=== PATIENT | female | born 1990 | race Caucasian/White ===

== ENCOUNTER 2023-06-19 22:43 | Observation (INO) | payer BC, SELFPAY ==
--- NOTE | ~2023-06-19 | US_ITS ---
EXAMINATION: US abdomen limited DATE: 06/20/2023 13:31 INDICATION: Right upper quadrant pain TECHNIQUE: Multiple grayscale and Doppler ultrasound images of the abdomen were obtained. COMPARISON: CT of the same date FINDINGS: The head and body of the pancreas are normal. The pancreatic tail is obscured by bowel gas. The liver is normal with normal echogenicity and echotexture. No surface nodularity. Normal hepatope elmer flow in the main portal vein. There are multiple stones in the gallbladder. The gallbladder wall is thickened. Pericholecystic fluid is noted. The normal common bile duct measures 6 mm. There was no sonographic Garza sign although sensitivity is limited by pain medication. IMPRESSION: 1. Cholelithiasis with acute cholecystitis. 2. Of note, the patient's IUD appears to be malpositioned on the comparison CT. Reviewed, dictated and finalized at [facility]. 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
--- NOTE | ~2023-06-19 | CT_ITS ---
CT of the Abdomen and Pelvis: Indication: Abdominal pain Technique: 2.5 mm axial scans were obtained through the abdomen and pelvis following intravenous adm inistration of 100 cc of Omnipaque 350. Dose reduction technique was used on this scan by utilizing a utomated exposure control and iterative reconstruction technique. The dose-length product (DLP) was 5 49.09 mGy-cm. Findings: Scans through the lung bases are unremarkable. The liver, spleen, pancreas, adrenals and kidneys are within normal limits. Gallbladder is distended with diffuse wall thickening. No evidence of aortic aneurysm. No lymphadenopathy. No bowel obstruction or bowel wall thickening. There is no evidence to suggest acute appendicitis. Images through the pelvis were performed. Urinary bladder unremarkable. IUD in place. No other adnexa l mass seen. Trace pelvic ascites. Impression: Distended gallbladder with gallbladder wall thickening is suggestive of acute cholecystitis. Correlat e clinically. Trace pelvic ascites. Reviewed, dictated and finalized at [facility]. TER GEOPHYSICAL Impression: Distended gallbladder with gallbladder wall thickening is suggestive of acute c holecystitis. Correlate clinically. Trace pelvic ascites.
[2023-06-19 22:46] VITALS: BP 117/87; PULSE 98; RESP 16; TEMP 36.6; O2SAT 100
[2023-06-19 22:57] LABS: Basophils Percent Auto 0.4 % (0.2-1.2); Hematocrit 41.4 % (37.0-47.0); Hemoglobin 13.4 g/dL (12.0-15.0); Immature Granulocyte Absolute 0.03 K/mm3 (0.00-0.031); Immature Granulocyte Percent A 0.3 % (0-0.5); Lymphocytes Percent Auto 10.2 % (18.3-44.2); Mean Corpuscular HGB Conc 32.4 g/dl (32-36); Mean Corpuscular Hemoglobin 29.9 pg (26-34); Mean Corpuscular Volume 92.4 fl (80-100); Mean Platelet Volume 10.4 fl (7.4-10.4); Monocytes Absolute Auto 0.5 K/mm3 (0.1-0.6); Monocytes Percent Auto 4.4 % (2.6-8.5); Neutrophils Absolute Auto 9.2 K/mm3 (1.3-6.7); Neutrophils Percent Auto 84.7 % (45.5-73.1); Platelet Count Result 275 k/mm3 (150-375); Red Blood Count 4.48 M/mm3 (4.2-5.4); White Blood Count 10.8 K/mm3 (4.5-10.0)
[2023-06-19 23:10] LABS: Alanine Aminotransferase 24 U/L (6-35); Albumin Level 4.5 g/dL (3.5-5.1); Alkaline Phosphatase 58 U/L (38-126); Anion Gap 8 mmol/L (8-16); Aspartate Amino Transferase 24 U/L (14-36); Bilirubin,Total 0.7 mg/dL (0.2-1.3); Blood Urea Nitrogen 10 mg/dL (7-17); Carbon Dioxide 23 mmol/L (22-30); Chloride 105 mmol/L (98-107); Estimated CRCL calculation 145 ml/min; Estimated Glomerular Filt Rate > 60; Glucose 123 mg/dL (65-110); Lipase 58 U/L (23-300); Potassium 3.6 mmol/L (3.4-5.0); Sodium 136 mmol/L (137-145)
[2023-06-20] VITALS (15 sets, daily range): BP systolic 95–129; BP diastolic 58–82; PULSE 63–86; RESP 12–19; TEMP 36.7–37.4; O2SAT 98–100; BMI 32.3
[2023-06-20 01:54] LABS: Appearance Urine Clear (Clear); Bacteria Urine Rare /hpf; Bilirubin Urine Negative (Negative); Blood Urine Negative (Negative); Color Urine Dark Yellow (Yellow); Glucose Urine UA Negative (Negative); Ketones Urine 3+ mg/dL (Negative); Leukocyte Esterase Ur Negative LEU/UL (Negative); Nitrate Urine Negative (Negative); Non Pathogenic Casts 0-2; Protein Urine 1+ mg/dL (Negative); RBC Urine 0-2 /hpf (0-2); Specific Grav Ur 1.034 (1.001-1.035); Squamous Epithelial Cell Urine Occasional /hpf (Few); Urobilinogen Urine 0.2 mg/dL (<2.0); WBC Urine 0-5 /hpf; pH Urine 5.5 (5.0-9.0)
[2023-06-20 02:01] LABS: Add Urine Microscopic? YES
--- NOTE | 2023-06-20 03:48 | ED.ABDPAIN ---
HPI - Abdominal Pain General Chief Complaint: Abdominal Pain Stated Complaint: sharp abd pain into back/ N/V Time Seen by Provider: 06/20/23 03:24 History of Present Illness HPI narrative: 32 old female present to the emergency department for evaluation of right upper quadrant pain that started at 8:00 a.m.. Patient denies any prior history of gallbladder disease patient does have 2 kids and 2 C sections. Patient reports that the night before she had done shows for dinner but did not have pain until she woke up at 8-9 a.m.. Patient states she had nausea and vomiting with associated right upper quadrant pain for the majority of the day. Related Data Allergies Allergy/AdvReac Type Severity Reaction Status Date / Time No Known Allergies Allergy Verified 06/20/23 02:54 Review of Systems Review of Systems: All systems reviewed & are unremarkable except as noted in HPI and below Exam Narrative: APPEARANCE: Well appearing, no pain, no distress, well-nourished. HEAD: normocephalic, atraumatic. EYES: PERRLA/EOMI, conjunctivae clear. NOSE: Normal no drainage EARS:TMS clear with good light reflex. THROAT: Pharynx clear, no exudate. NECK: Supple. No adenopathy, no masses. RESPIRATORY: Airway patent, respirations nonlabored. Clear to auscultation bilaterally, no rales, rhonchi, wheezing. CARDIOVASCULAR: Regular rate and rhythm without murmurs rubs or gallops. ABDOMINAL: Right upper quadrant tenderness to palpation MUSCULOSKELETAL: Moves all extremities. Strength/ROM intact, No edema, No calf tenderness. NEURO: Alert. Cranial nerves II through XII intact. Good gait. Good coordination SKIN: Warm, dry. Normal Color PSYCHIATRIC: Normal affect/mood. Course Course Emergency Course: 32-year-old female present to the emergency department for evaluation of right upper quadrant pain. patient is afebrile but does have a leukocytosis of 10.8, hemoglobin is 13.4, CMP had no elevation of T bili AST ALT or alk-phos, patient's lipase was normal. UA showed no evidence of infection. CT scan was concerning for acute cholecystitis. I discussed the case with surgery and patient was accepted. Patient and family were updated on the results of the imaging and treatment plan. Vital Signs Vital signs: Vital Signs Temperature 97.8 F 06/19/23 22:46 Pulse Rate 98 02/19/24 22:46 Respiratory Rate 16 06/19/23 22:46 Blood Pressure 117/87 06/19/23 22:46 Pulse Oximetry 100 06/19/23 22:46 Oxygen Delivery Room Air 06/19/23 22:46 Temperature 97.8 F 06/19/23 22:46 Pulse Rate 76 06/20/23 07:21 Respiratory Rate 14 06/20/23 07:21 Blood Pressure 105/68 06/20/23 07:21 Pulse Oximetry 98 06/20/23 07:21 Oxygen Delivery Room Air 06/19/23 22:46 MDM - Abdominal Pain Lab Data 06/19/23 22:51 06/19/23 22:51 Labs: Lab Results 06/19/23 06/20/23 Range/Units 22:51 00:36 WBC 10.8 H (4.5-10.0) K/mm3 RBC 4.48 (4.2-5.4) M/mm3 Hgb 13.4 (12.0-15.0) g/dL Hct 41.4 (37.0-47.0) % MCV 92.4 (80-100) fl MCH 29.9 (26-34) pg MCHC 32.4 (32-36) g/dl RDW 13.0 (11.5-14.5) % Plt Count 275 (150-375) k/mm3 MPV 10.4 (7.4-10.4) fl Immature Gran % (Auto) 0.3 (0-0.5) % Neut % (Auto) 84.7 H (45.5-73.1) % Lymph % (Auto) 10.2 L (18.3-44.2) % Mcleod % (Auto) 4.4 (2.6-8.5) % Eos % (Auto) 0.0 (0-4.4) % Baso % (Auto) 0.4 (0.2-1.2) % Lymph # (Auto) 1.10 (0.9-3.2) K/mm3 Mcleod # (Auto) 0.5 (0.1-0.6) K/mm3 Eos # (Auto) 0.0 (0-0.3) K/mm3 Baso # (Auto) 0.0 (0.0-0.1) K/mm3 Abs Immat Gran (auto) 0.03 (0.00-0.031) K/mm3 Absolute Neuts (auto) 9.2 H (1.3-6.7) K/mm3 Absolute Nucleated RBC 0.0 (0.0-0.012) K/mm3 Nucleated RBC % 0.0 (0.0-0.2) % Sodium 136 L (137-145) mmol/L Potassium 3.6 (3.4-5.0) mmol/L Chloride 105 (98-107) mmol/L Carbon Dioxide 23 (22-30) mmol/L Anion Gap 8 (8-16) mmol/L BUN 10 (7-17) mg/d
[2023-06-20 04:17] LABS: Pregnancy On Board Control Positive; Urine Pregnancy Test Negative
[2023-06-20] MEDS: HYDROmorphone HCL INJ (*CRX) 1 MG/ML SYR IV PUSH (04:30)
[2023-06-20] MEDS: SODIUM CHLORIDE 0.9% IV 1,000 ML 999 ML IV CONT (04:30)
[2023-06-20] MEDS: ONDANSETRON INJ 4 MG/2 ML VIAL IV PUSH ×3 (04:30→17:06)
[2023-06-20] MEDS: HYDROmorphone HCL INJ (*CRX) 1 MG/ML SYR 0.5 MG IV PUSH ×4 (06:55→21:16)
[2023-06-20] MEDS: metroNIDAZOLE 500 MG/ISO 100ML 500 MG/100 ML BAG 100 MG IVPB ×3 (07:20→21:12)
--- NOTE | 2023-06-20 07:48 | ADMGEN ---
This patient, Gi Hoyos, was admitted to [facility] Surg Room 321-02 at 0735. Patient/family oriented to hospital policies and general routines including ID bracelet, bed and alarms, visiting hours, pain management, procedures, bathroom and other care routines, personal items, smoking policy, room service/diet, and visiting hours. Information on how to activate the Rapid Response Team has been discussed. Patient/Family are encouraged to report perceived risks to care and to ask questions if they do not understand what they are told or what they should do.
[2023-06-20] MEDS: SODIUM CHLORIDE 0.9% IV 1,000 ML 125 ML IV CONT ×2 (07:59→18:07)
[2023-06-20] MEDS: ACETAMINOPHEN 500 MG TABLET 1000 MG PO ×2 (11:06→18:07)
--- NOTE | 2023-06-20 12:52 | PM.IMHP ---
H&P: HPI History of Present Illness Date/Time: 06/20/23 12:52 Chief Complaint: Right upper quadrant pain Narrative: This is a 32-year-old woman who presented to the emergency department overnight with worsening right upper quadrant pain. She woke up yesterday morning and began experiencing the pain. The pain worsened throughout the day and she began experiencing nausea and vomiting. She had eaten not shows the night before, but went to bed feeling fine. She has never had symptoms like this before but may have had some dull minor pains in the past. She denies any fevers or chills. She denies any family history of gallbladder issues. In the emergency department she was noted to have a slightly elevated white blood count the liver enzymes were all normal. CT showed evidence of acute cholecystitis. She was then admitted for further treatment. Review of Systems Review of Systems: All systems reviewed & are unremarkable except as noted in HPI and below Eyes: Eyes: Denies change in vision ENT: Denies hearing loss, Denies neck pain and Denies sore throat Cardiovascular: Cardiovascular: Denies chest pain and Denies dyspnea Respiratory: Respiratory: Denies cough, Denies dyspnea and Denies wheezing Gastrointestinal: Gastrointestinal: Reports as per HPI Genitourinary: Genitourinary: Denies hematuria and Denies dysuria Musculoskeletal: Musculoskeletal: Denies arthralgias, Denies joint swelling and Denies neck pain Allergic/Immunologic: Allergic/Immunologic: Denies wheezing [facility] Past Medical History Medical History (Updated 06/20/23 @ 12:54 by Chino Mcdonald DO) No pertinent past medical history Surgical History Surgical History (Updated 06/20/23 @ 12:54 by Chino Mcdonald DO) History of Family History Family History (Updated 06/20/23 @ 12:54 by Chino Mcdonald DO) Father Diabetes mellitus Mother No problems noted. Social History Social History Smoking status: Never smoker Alcohol intake: never Substance use: never Do You Feel Safe in your Home?: Yes Lack of Transportation: No Lack of Food: Never True Current Housing: I Have Housing Concerned About Future Housing: No Difficulty Paying Gas/Electric Bills: No Difficulty Paying for Meds: No Currently Unemployed: No Education: Bachelor's Degree Difficulty w/ Childcare or Family Care: No Spiritual care concerns: No Meds Home Medications and Allergies Home Medications Medication Instructions Recorded Confirmed Type multivitamin with minerals-folic 1 tablet PO DAILY 06/20/23 06/20/23 History acid 0.4 mg tablet Allergies Allergy/AdvReac Type Severity Reaction Status Date / Time No Known Allergies Allergy Verified 06/20/23 02:54 Vital Signs Vital Signs - 24 hr 06/19/23 22:46 06/20/23 02:30 06/20/23 03:30 Temperature 36.6 C Pulse Rate 98 76 81 Respiratory Rate 16 15 18 Blood Pressure 117/87 129/76 118/72 Pulse Oximetry 100 100 100 Oxygen Delivery Room Air 06/20/23 04:30 06/20/23 05:06 06/20/23 05:16 Temperature Pulse Rate 85 84 72 Respiratory Rate 13 14 16 Blood Pressure 123/81 114/82 117/70 Pulse Oximetry 98 99 99 Oxygen Delivery 06/20/23 05:31 06/20/23 05:46 06/20/23 06:01 Temperature Pulse Rate 71 63 78 Respiratory Rate 15 16 17 Blood Pressure 108/69 109/68 111/78 Pulse Oximetry 100 99 99 Oxygen Delivery 06/20/23 06:16 06/20/23 06:31 06/20/23 06:46 Temperature Pulse Rate 84 86 82 Respiratory Rate 17 19 19 Blood Pressure 114/74 113/71 118/72 Pulse Oximetry 100 100 99 Oxygen Delivery 06/20/23 07:21 06/20/23 07:35 06/20/23 08:00 Temperature 36.7 C Pulse Rate 76 77 Respiratory Rate 14 18 Blood Pressure 105/68 109/65 Pulse Oximetry 98 98 Oxygen Delivery Room Air Exam Const: General: alert; No acute distress Orientation/consciousness: patient oriented x3 Limitations: no limitations HENMT: Head:
[2023-06-21] VITALS (10 sets, daily range): BP systolic 97–121; BP diastolic 56–69; PULSE 74–103; RESP 12–18; TEMP 36.2–36.7; O2SAT 93–100
[2023-06-21] MEDS: SODIUM CHLORIDE 0.9% IV 1,000 ML 125 ML IV CONT ×2 (02:04→08:06)
[2023-06-21] MEDS: ACETAMINOPHEN 500 MG TABLET 1000 MG PO (02:07)
[2023-06-21] MEDS: HYDROmorphone HCL INJ (*CRX) 1 MG/ML SYR 0.5 MG IV PUSH ×7 (02:08→15:12)
[2023-06-21] MEDS: metroNIDAZOLE 500 MG/ISO 100ML 500 MG/100 ML BAG 100 MG IVPB ×2 (05:17→13:57)
[2023-06-21 06:00] LABS: Hematocrit 34.2 % (37.0-47.0); Hemoglobin 10.8 g/dL (12.0-15.0); Mean Corpuscular HGB Conc 31.6 g/dl (32-36); Mean Corpuscular Hemoglobin 30.1 pg (26-34); Mean Corpuscular Volume 95.3 fl (80-100); Mean Platelet Volume 10.6 fl (7.4-10.4); Platelet Count Result 183 k/mm3 (150-375); Red Blood Count 3.59 M/mm3 (4.2-5.4); Red Cell Distribution Width 13.2 % (11.5-14.5); White Blood Count 5.5 K/mm3 (4.5-10.0)
[2023-06-21 06:11] LABS: Alanine Aminotransferase 46 U/L (6-35); Albumin Level 3.1 g/dL (3.5-5.1); Alkaline Phosphatase 48 U/L (38-126); Anion Gap 2 mmol/L (8-16); Aspartate Amino Transferase 48 U/L (14-36); Bilirubin,Total 0.8 mg/dL (0.2-1.3); Blood Urea Nitrogen 5 mg/dL (7-17); Calcium 7.6 mg/dL (8.4-10.2); Carbon Dioxide 26 mmol/L (22-30); Chloride 107 mmol/L (98-107); Estimated CRCL calculation 145 ml/min; Estimated Glomerular Filt Rate > 60; Glucose 85 mg/dL (65-110); Lipase 41 U/L (23-300); Potassium 3.1 mmol/L (3.4-5.0); Sodium 135 mmol/L (137-145)
[2023-06-21] MEDS: ONDANSETRON INJ 4 MG/2 ML VIAL IV PUSH (08:09)
--- NOTE | 2023-06-21 10:47 | PM.PNGS ---
Progress Note: A&P Assessment and Plan (1) Acute cholecystitis: Code(s): K81.0 - Acute cholecystitis Status: Acute Assessment and Plan: Patient is still agreeable to proceed with surgery this afternoon. She has significant situational anxiety. We had a thorough discussion again about surgery and I answered all of her questions. I have also added IV Ativan as needed for her anxiety. Potassium also replaced. Plan to proceed with laparoscopic cholecystectomy this afternoon. Subjective Subjective Date/Time Seen: 06/21/23 10:47 Patient reports: still having pain Interval history: Scheduled for a laparoscopic cholecystectomy this afternoon with Dr. Mcdonald. I was called to the room by the nurse as patient is feeling very anxious and has been tearful all morning. The patient is just nervous about surgery. She is still having pain in receiving IV Dilaudid. She feels that her nerves are extremely height and as she has been waiting for surgery since coming into the ER 2 nights ago. She is still agreeable to surgery. No new concerns or acute changes overnight. Exam GI: Inspection: non-distended GI Palp: Yes Tenderness to palpation present (GI) (Right upper quadrant) Objective Data Vital Signs Vital Signs: Vital Signs - 24 hr 06/20/23 14:00 06/20/23 21:24 06/21/23 05:22 Temperature 98.0 F 99.4 F 97.9 F Pulse Rate 77 66 74 Respiratory Rate 14 12 12 Blood Pressure 95/59 L 100/58 L 97/56 L Pulse Oximetry 98 99 99 Intake/Output Intake/Output: Intake & Output 06/18/23 06/19/23 06/20/23 06/21/23 23:59 23:59 23:59 23:59 Intake Total 2310 2400 Balance 2310 2400 Meds/Results Medications: Active Medications Generic Name Dose Route Start Last Admin Trade Name Freq PRN Reason Stop Dose Admin Acetaminophen 1,000 mg 06/20/23 10:36 06/21/23 02:07 Acetaminophen 500 Mg Tablet PO 1,000 mg Q6H PRN Administration Headache Hydromorphone HCl 0.5 mg 06/20/23 17:02 06/21/23 09:55 Hydromorphone Hcl Inj (*Crx) 1 Mg/Ml Syr IV PUSH 0.5 mg Q2H PRN Administration Pain Rated 4-6 Hydromorphone HCl 1 mg 06/20/23 17:02 Hydromorphone Hcl Inj (*Crx) 1 Mg/Ml Syr IV PUSH Q2H PRN Pain Rated 7-10 Ceftriaxone Sodium 1 gm in 50 mls @ 100 mls/hr 06/21/23 06:00 06/21/23 05:47 Rocephin 1 Gm/Ns 50 Ml IVPB Infused Q24H URBAN Infusion Metronidazole 500 mg in 100 mls @ 100 mls/hr 06/20/23 14:00 06/21/23 06:17 Flagyl 500 Mg/Iso Soln 100 Ml IVPB Infused Q8H URBAN Infusion Sodium Chloride 1,000 mls @ 125 mls/hr 06/20/23 06:15 06/21/23 08:06 Normal Saline Iv IV CONT 125 mls/hr .Q8H URBAN Administration Potassium Chloride 40 meq/ 520 mls @ 130 mls/hr 06/21/23 10:15 Sodium Chloride IVPB 06/21/23 14:14 ONCE ONE Lorazepam 0.5 mg 06/21/23 09:59 Lorazepam Inj (*Crx) 2 Mg/Ml Vial IV PUSH Q6H PRN Anxiety Ondansetron HCl 4 mg 06/20/23 06:14 06/21/23 08:09 Ondansetron Inj 4 Mg/2 Ml Vial IV PUSH 4 mg Q4H PRN Administration Nausea Radiology Results: ITS Impressions Abdomen/Pelvis CT 06/20/23 05:53 Impression: Distended gallbladder with gallbladder wall thickening is suggestive of acute cholecystitis. Correlate clinically. Trace pelvic ascites. Abdomen Ultrasound 06/20/23 13:54 IMPRESSION: 1. Cholelithiasis with acute cholecystitis. 2. Of note, the patient's IUD appears to be malpositioned on the comparison CT. Labs Labs: Laboratory Results - last 24 hr 06/21/23 05:46 WBC 5.5 RBC 3.59 L Hgb 10.8 L Hct 34.2 L MCV 95.3 MCH 30.1 MCHC 31.6 L RDW 13.2 Plt Count 183 MPV 10.6 H Sodium 135 L Potassium 3.1 L Chloride 107 Carbon Dioxide 26 Anion Gap 2 L BUN 5 L D Creatinine 0.40 L Estim Creat Clear Calc 145 Estimated GFR > 60 Glucose 85 Calcium 7.6 L Total Bilirubin 0.8 AST 48 H ALT 46 H Alkaline Phosphatase 48 Total Protein 6.0 L Albumi
[2023-06-21] MEDS: POTASSIUM CHLORIDE INJ 40 MEQ in SODIUM CHLORIDE 0.9% IV 500 ML 130 MEQ IVPB (11:25)
[2023-06-21] MEDS: LORazepam INJ (*CRX) 2 MG/ML VIAL 0.5 MG IV PUSH (11:26)
--- NOTE | 2023-06-21 13:06 | WPDANESEPPF ---
Anes - Initial Pre Proc Eval Procedure: Operation Date: 06/21/23 14:00 Proposed Procedures p Laparoscopic Cholecystectomy - Chino Mcdonald DO Date/Time: 06/21/23 13:06 Surgeon: Chino Mcdonald DO Pre Op Diagnosis: ACUTE CHOLECYSTITIS Patient Data Age: 32 Gender: F Height: 1.52 m Weight: 75 kg Last Vital Signs Temp 36.6 C 06/21/23 05:22 Pulse 74 06/21/23 05:22 Resp 12 06/21/23 05:22 BP 97/56 L 06/21/23 05:22 Pulse Ox 99 06/21/23 05:22 O2 Del Method Room Air 06/20/23 08:00 Allergies Allergy/AdvReac Type Severity Reaction Status Date / Time No Known Allergies Allergy Verified 06/20/23 02:54 Home Medications Medication Instructions Recorded Confirmed Type multivitamin with minerals-folic 1 tablet PO DAILY 06/20/23 06/20/23 History acid 0.4 mg tablet Laboratory Tests 06/21/23 05:46 WBC 5.5 K/mm3 (4.5-10.0) RBC 3.59 L M/mm3 (4.2-5.4) Hgb 10.8 L g/dL (12.0-15.0) Hct 34.2 L % (37.0-47.0) MCV 95.3 fl (80-100) MCH 30.1 pg (26-34) MCHC 31.6 L g/dl (32-36) RDW 13.2 % (11.5-14.5) Plt Count 183 k/mm3 (150-375) MPV 10.6 H fl (7.4-10.4) Sodium 135 L mmol/L (137-145) Potassium 3.1 L mmol/L (3.4-5.0) Chloride 107 mmol/L (98-107) Carbon Dioxide 26 mmol/L (22-30) Anion Gap 2 L mmol/L (8-16) BUN 5 L D mg/dL (7-17) Creatinine 0.40 L mg/dL (0.7-1.0) Estim Creat Clear Calc 145 ml/min Estimated GFR > 60 (59 - ) Glucose 85 mg/dL (65-110) Calcium 7.6 L mg/dL (8.4-10.2) Total Bilirubin 0.8 mg/dL (0.2-1.3) AST 48 H U/L (14-36) ALT 46 H U/L (6-35) Alkaline Phosphatase 48 U/L (38-126) Total Protein 6.0 L g/dL (6.3-8.2) Albumin 3.1 L g/dL (3.5-5.1) Lipase 41 U/L (23-300) Patient hx anesthesia problems: none Family hx anesthesia problems: none Results Review: All pre-operative results and documents have been reviewed as part of the pre-operative evaluation. [facility] Past Medical History Medical History No pertinent past medical history Surgical History Surgical History History of Family History Family History Father Diabetes mellitus Mother No problems noted. Social History Social History Smoking status: Never smoker Alcohol intake: never Substance use: never Do You Feel Safe in your Home?: Yes Lack of Transportation: No Lack of Food: Never True Current Housing: I Have Housing Concerned About Future Housing: No Difficulty Paying Gas/Electric Bills: No Difficulty Paying for Meds: No Currently Unemployed: No Education: Bachelor's Degree Difficulty w/ Childcare or Family Care: No Spiritual care concerns: No Anes - Eval Final PreProcedure Day of Procedure 06/21/23 13:06 Patient weight: obese Heart: regular rate and rhythm Lungs: clear to auscultation Airway: Mallampati scale class II Neurological: alert and oriented Last oral intake: >/= 8 hours ASA classification: II Emergent: no Anesthetic plan: proceed Anesthesia type and monitoring: general ETT and standard monitoring Results Review: All pre-operative results and documents have been reviewed as part of the pre-operative evaluation. Informed Consent: The patient's anesthetic plan and its attendant risks and benefits were discussed with the patient/family/POA. Questions were solicited and answers provided to the satisfaction of the patient/family/POA.
--- NOTE | 2023-06-21 13:20 | WPDHPUPDATE1 ---
History and Physical Update Update Date/Time: 06/21/23 13:20 History and Physical has been reviewed, including an updated exam of the patient. There are NO changes in the patient's condition. Risks, benefits, and alternatives have been discussed and questions answered. Patient agrees to proceed with procedure.
[2023-06-21] MEDS: BUPIVACAINE/EPINEPHRINE 0.5% 30 ML VIAL INFILTRATE (13:46)
[2023-06-21] MEDS: LACTATED RINGERS 1,000 ML 30 ML IV CONT (14:11)
[2023-06-21] MEDS: SCOPOLAMINE 1 MG PATCH 1 PATCH TRANSDERM (14:19)
--- NOTE | 2023-06-21 14:26 | W.PM.PROC2 ---
Procedure Note - Detailed Date of Procedure 06/21/23 Pre-op Diagnosis Acute calculous cholecystitis Post-op Diagnosis Same Procedure Performed Laparoscopic Cholecystectomy Surgeon Chino Mcdonald, DO Anesthesia General and Local (0.5% bupivacaine) Indications This is a 32-year-old woman who presented to the emergency department with right upper quadrant abdominal pain for the past 2 days. Patient had eaten not shows the night before the pain started, but had never had any symptoms like this in the past. She was noted to have an elevated white blood count and CT showed evidence of acute cholecystitis. A gallbladder ultrasound also confirmed cholelithiasis with acute cholecystitis. Discussions were made with the patient about treatment options and decision was made to proceed with laparoscopic cholecystectomy, possible open. Findings Laparoscopic cholecystectomy was performed. The gallbladder had evidence of acute cholecystitis and gallbladder hydrops. Her to medium-sized stones within the neck of the gallbladder. The cystic duct did appear slightly dilated. No other significant abnormalities were identified. The gallbladder was removed and sent to the lab for pathology. Description of Procedure Procedure as well as risks, benefits, and alternatives were discussed with patient. Written consent was obtained and placed in chart prior to procedure. The patient was brought back to surgical suite. Patient was placed in supine position on operating table. Time-out was done to confirm patient and procedure. Patient was then intubated by the anesthesia department. Abdomen was prepped and draped in sterile fashion using chlorhexidine prep. 0.5% bupivacaine with epinephrine was infiltrated at each site of incision. A 5 millimeter incision was made near the umbilicus, and a 5 millimeter Optiview trocar was advanced through the abdominal layers under direct visualization. Once inside the abdominal cavity, carbon dioxide was insufflated to create a pneumoperitoneum. The camera was inserted and the abdomen was inspected. No immediate abnormalities were identified. The patient was placed in reverse Trendelenburg position and rotated slightly to the left. An 11 millimeter incision was made in the subxiphoid region, and an 11 millimeter trocar was inserted under direct visualization. Two 5 millimeter incisions were made in the right upper quadrant, and two 5 millimeter trocars were inserted under direct visualization. The gallbladder was identified and grasped at the fundus and retracted superiorly. It was then grasped at the infundibulum retracted laterally. Careful dissection around the neck of the gallbladder was performed using blunt dissection with a [place] grasper and hook electrocautery. The cystic duct was identified, and a window was created behind it. The cystic artery was also identified and a window was created behind it. The critical view of safety was identified, visualizing the cystic duct running directly into the neck of the gallbladder, and the cystic artery running directly into the wall of the gallbladder. A 5 millimeter clip clay dry press operator was then used to place 2 clips proximally and 1 clip distally on both the cystic duct and cystic artery. They were then both transected using endoscopic scissors. Once safely away from the gabi hepatitis, the gallbladder was dissected free from the liver bed using hook electrocautery. Hemostasis was achieved along the way. The gallbladder was removed completely and then removed through the subxiphoid port. The liver bed was then inspected. Hemostasis appeared adequate, and our clips appeared secure. The area was gently irrigated with sterile saline. No other abnormalities were seen. The patient was flattened out in bed, and 1 final inspection was made around the abdominal cavity. The subxiphoid port was removed, and a Dao Valeria cone was used to approximate the fascia with an 0-Vicryl simple interru
--- NOTE | 2023-06-21 20:00 | PM.DS ---
DS: Admitting Diagnosis Discharge Date 06/21/23 Admitting Diagnosis Acute calculous cholecystitis DS: Discharge Diagnosis Discharge Diagnosis (1) Acute cholecystitis: Code(s): K81.0 - Acute cholecystitis Status: Acute DS: Summary Hospital Course Reason for hospitalization: Acute cholecystitis Hospital Course: This is a 32-year-old woman who presented to the emergency department on 06/20/2023 with right upper quadrant abdominal pain. Workup showed evidence of acute cholecystitis. She was placed in observation in the hospital for further workup and treatment. Ultrasound on 06/20 showed evidence of cholelithiasis with acute cholecystitis. Discussions were made with the patient about treatment options and decision was made to proceed with laparoscopic cholecystectomy on 06/21. Surgery was uncomplicated and she was returned to the surgical floor postoperatively. Her diet and activity were advanced as tolerated. She was discharged home on 06/21 once her pain was adequately controlled, her vitals remained stable, she was tolerating a low-fat diet, and ambulating in the halls. Status at Discharge Functional status at discharge: independent ambulation Overall status at discharge: patient is progressing back to baseline Time Spent with Patient Time attestation: Total time spent providing and/or coordinating discharge services: Time spent: Less than 30 minutes Exam Const: General: no acute distress GI: Inspection: incision (Intact with glue) DS: Data Data Completed and Pending Completed studies during hospitalization: Pending at discharge 06/21/23 13:40 Surgical [PTH] Routine Imaging Radiologist's impression: ITS Impressions Abdomen/Pelvis CT 06/20/23 05:53 Impression: Distended gallbladder with gallbladder wall thickening is suggestive of acute cholecystitis. Correlate clinically. Trace pelvic ascites. Abdomen Ultrasound 06/20/23 13:54 IMPRESSION: 1. Cholelithiasis with acute cholecystitis. 2. Of note, the patient's IUD appears to be malpositioned on the comparison CT. Discharge Plan Discharge Attending physician on discharge: Chino Velasco Consulting providers: Carlitos Fields; Wilman Villalobos; Samra Lynn; René Delarosa Discharging Clinician: Chino Velasco Patient Disposition: Home, Self-Care Activity: other - see discharge instructions Diet: low fat Wound Care Instructions: other - see discharge instructions Discharge Instructions: DISCHARGE INSTRUCTION SHEET FOR HERNIA, GALLBLADDER AND APPENDIX SURGERIES DR. VELASCO PATIENT TO TAKE HOME 1. May shower in 24 hours, no soaking in bath x 2weeks. 2. Call office for: Wound increasingly painful or bleeding Vomiting Fever of greater than 101 degrees 3. If no bowel movement for three days, take 1 oz. (30 ml) Milk of Magnesia or MiraLax 17g 1 to 2 times daily. 4. No heavy lifting > 10-15 pounds x weeks for hernia repairs and 2 weeks for laparoscopic cholecystectomy or appendectomy. 5. No driving for 3 days or while taking narcotic pain medications. 6. Ice to surgical site for 48 hours (30 min on, then 30 min off). 7. Up walking 10-30 minutes three times per day. 8. Resume previous home medications. 9. Follow-up 10-14 days in office for wound check or as previously scheduled. ([phone]) 10. Oral pain medications prescription to be sent to pharmacy. Take Tylenol 500mg every 6 hours and Ibuprofen 600mg every 6 hours for the first 2 days, then as needed. 11. NUTRITION: Start out by drinking fluids and increase your diet as tolerated. If you experience nausea, try dry toast, crackers, and 7-UP. If nausea or vomiting persists, contact your surgeon?s office. 12. Gallbladders-Low Fat Diet for 2 weeks (send care note of low fat diet) 13. Inguinal Hernias-wear scrotal support for 48 hours 14.
[2023-06-21] MEDS: HYDROcodone/acetaminophen (*CRX) 7.5-325 MG TABLET 1 TAB PO (20:47)
--- NOTE | 2023-06-22 14:03 | WPDANESPN ---
Anes - Prog Note Post-Op Date/Time: 06/22/23 14:03 Cardiovascular status: normal Respiratory status: normal Airway patency: baseline Mental status: baseline Post-Op hydration status: normal Vital Signs: Last Vital Signs Temp 97.6 F 06/21/23 20:37 Pulse 77 06/21/23 20:37 Resp 16 06/21/23 20:37 BP 109/65 06/21/23 20:37 Pulse Ox 97 06/21/23 20:37 O2 Del Method Room Air 06/21/23 15:15 O2 Flow Rate 8 06/21/23 14:45 Pain Score (VAS): 0/10 Laboratory Tests 06/21/23 05:46 06/21/23 05:46 Post-procedural complaints: none Patient Feedback: Patient satisfied with anesthetic care.
== END 2023-06-21 21:00 | disposition home or self-care (01) ==
LOC: ANHED 06-20 03:56 → ANH3MEDSUR 06-20 06:50
PROVIDERS: Admitting Provider Surgery; Emergency Provider Emergency Medicine; PCP Internal Medicine; Visit Provider Surgery
PROC: 0FT44ZZ Resection of Gallbladder, Percutaneous Endoscopic Approach (ICD-10-PCS; CPT 47562; principal; 2023-06-21 14:00)
DX: K80.10 Calculus of gallbladder with chronic cholecystitis without obstruction (principal); E66.9 Obesity, unspecified; Z68.32 Body mass index [BMI] 32.0-32.9, adult; Z79.899 Other long term (current) drug therapy
CPT/HCPCS: 47562; 36415; 74177; 76705; 80053; 81001; 81025; 83690; 85025; 85027; 88304; 96361; 96365; 96375; 96376; 99285; A9270; G0378; J0696; J1100; J1170; J1596; J1836; J2060; J2250; J2405; J2704; J3010; J3480; J7030; J7040; J7120; Q9967